=== PATIENT | male | born 2000 | race Caucasian/White ===

== ENCOUNTER 2022-11-16 18:53 | Emergency (ER) | payer BC, SELFPAY ==
[2022-11-16 19:00] VITALS: BP 132/87; PULSE 99; RESP 16; TEMP 36.6; O2SAT 99; BMI 22.9
[2022-11-16 21:40] LABS: Basophils Percent Auto 0.2 % (0.0-3.0); Eosinophils Percent Auto 0.4 % (0.0-7.0); Hematocrit 48.4 % (37.0-53.0); Immature Granulocytes Pct Auto 0.1 %; Lymphocytes Percent Auto 18.7 % (20-44); Mean Corpuscular HGB Conc 33 gm/dL (32-36); Mean Corpuscular Hemoglobin 29 pg (26-34); Mean Corpuscular Volume 88 fL (80-100); Monocytes Percent Auto 3.1 % (0.0-11.0); Neutrophils Percent Auto 77.5 % (42.0-72.0); Platelet Count* 287 K/uL (140-440); RDW Coefficient of Variation % 11.8 % (11.5-15.5); Red Blood Count 5.49 m/uL (4.30-5.90); White Blood Count* 12.02 K/uL (4.50-11.00)
[2022-11-16 22:13] LABS: Chloride* 106 mmol/L (96-114); Sodium* 141 mmol/L (135-149)
[2022-11-16 22:14] LABS: Potassium* 3.5 mmol/L (3.6-5.1)
[2022-11-16 22:16] LABS: Creatinine* 0.8 mg/dL (0.5-1.5); Est. Creatinine Clearance* 152.39; Estimated Glomerular Filt Rate 128 ml/min
[2022-11-16 22:17] LABS: Blood Urea Nitrogen* 16 mg/dL (5-24); Calcium* 9.5 mg/dL (8.4-10.6); Carbon Dioxide* 26 mmol/L (20-32); Glucose* 98 mg/dL (60-115)
[2022-11-16 22:22] LABS: Slide Review Reflex No
[2022-11-16 22:32] LABS: C Reactive Protein* < 0.5 mg/dL (0.5-1.0)
[2022-11-16 22:37] LABS: SARS PCR* Negative SARS-CoV-2 (Negative)
[2022-11-16 23:15] LABS: Erythrocyte SedimentationRate* 3 mm/hr (2-15)
[2022-11-17 01:03] LABS: Alanine Aminotransferase* 28 U/L (4-50); Alkaline Phosphatase* 74 U/L (40-150); Aspartate Amino Transferase* 42 U/L (12-35); Bilirubin Direct* 0.2 mg/dL (0.0-0.5); Bilirubin Total* 1.3 mg/dL (0.1-1.5); Total Protein* 8.7 g/dL (6.0-8.3)
[2022-11-17 01:13] LABS: NT Pro B Type NatriureticPept* < 20 pg/mL
--- NOTE | 2022-11-17 09:40 | ED.GENADULT ---
HPI - General Adult General Chief complaint: Headache/Migraine Stated complaint: Pressure in Head,Not functioning as normally would Time Seen by Provider: 11/16/22 20:25 History of Present Illness HPI narrative: 22-year-old young man here with his partner partners daughter. There also currently anticipating with child in 3 weeks. His complaint is number of symptoms. He is worried that he might have a mental illness or comes out later that perhaps some bowel disorder like his mother who has Crohn's. He does not describe any blood in stool or frankly abdominal pain but for the last month or maybe longer has been having difficult time eating in particular. He sometimes has to force feed himself. Generally vague sense of nausea. He will push himself to eat and end up retching. Does not sound as the vomiting is a major component though. He has lately been having small formed stools. He does get intermittent headaches as well usually worse over the course of the day and is not waking with them. He has not had any fevers. No rashes noted. He describes a believe for episodes of what he would call panic attacks. He notes heart racing and breathing fast. First 1 occurred maybe 2 months ago and had again 4 over the last 2 months. Otherwise describes a frequent sense of needing to pay attention to his breathing perhaps what I would describe as a psychogenic air hunger. Generally lower energy. He does get 6 hours of sleep at night typically. 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 No substance use, no alcohol. 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 Transaminases were reported to have normalized. He is able to show me labs including normal chemistries. Related Data Allergies Allergy/AdvReac Type Severity Reaction Status Date / Time No Known Drug Allergies Allergy Verified 11/16/22 19:05 Review of Systems Status of ROS: Reports: 10 or more systems reviewed and unremarkable except as noted in History and below [facility] Social History Non-prescribed substance use: denies use Exam Narrative: Exam Narrative: Pleasant. Introspective/thoughtful. Speech isn't pressured or slurred. Appropriately casually groomed. Is wearing a hoodie; initially the hoodie up. Cranial nerves 2-12 look to be intact. Head is atraumatic. There is no thyromegaly. Neck is supple. Lungs are clear. Breathing easily. There is no supraclavicular crepitus. Heart is with a mildly elevated rate in a regular rhythm. No murmur rub or gallop identified. Skin is warm and dry without apparent rash. Extremities are well perfused without edema. Oropharynx is a little sticky. Abdomen is flat soft and nontender. No masses appreciated. There is no flank pain. Const: Vital Signs, click to edit/add: Vital Signs - 24 hr 11/16/22 19:00 Temperature 97.9 F Pulse Rate [Pulse Oximeter] 99 Respiratory Rate 16 [facility] 132/87 Pulse Oximetry 99 Oxygen Delivery Me thod Room Air Documenting provider has reviewed patient's vital signs: yes Course Vital Signs Vital signs: Initial Vital Signs Temperature 97.9 F 11/16/22 19:00 Temperature Source Temporal Artery Scan 11/16/22 19:00 Pulse Rate 99 11/16/22 19:00 Pulse Rhythm 11/16/22 19:00 Pulse Strength 3+ Normal 11/16/22 19:00 Respiratory Rate 16 11/16/22 19:00 Blood Pressure 132/87 11/16/22 19:00 Blood Pressure Mean 102 11/16/22 19:00 Blood Pressure Position Sitting 11/16/22 19:00 Pulse Oximetry 99 11/16/22 19:00 Oxygen Delivery Method 11/16/22 19:00 Vital Signs Temperature 97.9 F 11/16/22 19:00 Pulse Rate 99 11/16/22 19:00 Respiratory Rate 16 11/16/22 19:00 Blood Pressure 132/87 11/16/22 19:00 Pulse Oximetry 99 11/16/22 19:00 Oxygen Delivery Method 11/16/22 19:00 Temperature 97.9 F 11/16/22 19:00 Pulse Rate 99 11/16/22 19:00 Respiratory Rate 16 11/16/22 19:00 Blood Pressure 132/87 11/16/22 19:00 Pulse Oximetry 99 11/16/22 19:00 Oxygen Delivery Method 11/16/22 19:00 Medical Decision Making MDM Narrative Medical decision making narrative: I can certainly identify some social stressors. I discussed that this could be done as an outpatient workup and regardless will need follow-up in the outpatient. He would like to proceed with at least initial laboratory evaluation. I did review labs that were done near the end of last year which is noted above showed normal chemistries. I suppose some of this fatigue could be coming from EBV infection and just be lingering. Would be reasonable to check for COVID. I suspect the labs will be generally normal. He would like to recheck. I would also check a TSH. And no red flags really with the headaches at this point. He describes a general awareness of his health and care in that regard. I think anticipating in 3 weeks of of a child could be adding to some degree of stress. Probably mental health is contributing to a good deal of these symptoms as described. Probably anxiety and possibly some depressive symptomatology. Initial laboratory evaluation is ordered. COVID testing as well. Jax departed the ER pending these results for outpatient follow-up. Lab Data Lab results reviewed: Yes I reviewed the patient's lab results Labs: Lab Results 11/16/22 11/16/22 11/16/22 Range/Units 21:30 21:33 21:33 WBC 12.02 H (4.50-11.00) K/uL RBC 5.49 (4.30-5.90) m/uL Hgb 16.0 (13.5-17.5) gm/dL Hct 48.4 (37.0-53.0) % MCV 88 (80-100) fL MCH 29 (26-34) pg MCHC 33 (32-36) gm/dL RDW Coeff of Reynaldo 11.8 (11.5-15.5) % Plt Count 287 (140-440) K/uL Neut % (Auto) 77.5 H (42.0-72.0) % Lymph % (Auto) 18.7 L (20-44) % [place] % (Auto) 3.1 (0.0-11.0) % Eos % (Auto) 0.4 (0.0-7.0) % Baso % (Auto) 0.2 (0.0-3.0) % Neut # (Auto) 9.30 H (1.7-7.0) K/uL Lymph # (Auto) 2.20 (0.90-2.90) K/uL [place] # (Auto) 0.40 (0.00-0.90) K/UL Eos # (Auto) 0.00 (0.00-0.50) K/uL Baso # (Auto) 0.00 (0.00-0.30) K/uL ESR (2-15) mm/hr Sodium 141 (135-149) mmol/L Potassium 3.5 L (3.6-5.1) mmol/L Chloride 106 (96-114) mmol/L Carbon Dioxide 26 (20-32) mmol/L BUN 16 (5-24) mg/dL Creatinine 0.8 (0.5-1.5) mg/dL Estimated Creat Clear 152.39 Estimated GFR 128 ml/min Glucose 98 (60-115) mg/dL Calcium 9.5 (8.4-10.6) mg/dL Total Bilirubin (0.1-1.5) mg/dL Direct Bilirubin (0.0-0.5) mg/dL AST (12-35) U/L ALT (4-50) U/L Alkaline Phosphatase (40-150) U/L C-Reactive Protein < 0.5 L (0.5-1.0) mg/dL NT-Pro-B Natriuret Pep pg/mL Total Protein (6.0-8.3) g/dL Albumin (3.3-5.0) g/dL SARS-CoV-2 (PCR) Negative SARS-CoV-2 (Negative) 11/16/22 11/16/22 Range/Units 21:33 21:33 WBC (4.50-11.00) K/uL RBC (4.30-5.90) m/uL Hgb (13.5-17.5) gm/dL Hct (37.0-53.0) % MCV (80-100) fL MCH (26-34) pg MCHC (32-36) gm/dL RDW Coeff of Reynaldo (11.5-15.5) % Plt Count (140-440) K/uL Neut % (Auto) (42.0-72.0) % Lymph % (Auto) (20-44) % [place] % (Auto) (0.0-11.0) % Eos % (Auto) (0.0-7.0) % Baso % (Auto) (0.0-3.0) % Neut # (Auto) (1.7-7.0) K/uL Lymph # (Auto) (0.90-2.90) K/uL [place] # (Auto) (0.00-0.90) K/UL Eos # (Auto) (0.00-0.50) K/uL Baso # (Auto) (0.00-0.30) K/uL ESR 3 (2-15) mm/hr Sodium (135-149) mmol/L Potassium (3.6-5.1) mmol/L Chloride (96-114) mmol/L Carbon Dioxide (20-32) mmol/L BUN (5-24) mg/dL Creatinine (0.5-1.5) mg/dL Estimated Creat Clear Estimated GFR ml/min Glucose (60-115) mg/dL Calcium (8.4-10.6) mg/dL Total Bilirubin 1.3 (0.1-1.5) mg/dL Direct Bilirubin 0.2 (0.0-0.5) mg/dL AST 42 H (12-35) U/L ALT 28 (4-50) U/L Alkaline Phosphatase 74 (40-150) U/L C-Reactive Protein (0.5-1.0) mg/dL NT-Pro-B Natriuret Pep < 20 pg/mL Total Protein 8.7 H (6.0-8.3) g/dL Albumin 5.0 (3.3-5.0) g/dL SARS-CoV-2 (PCR) (Negative) Discharge Plan Discharge Clinical Impression: Malaise Patient Disposition: Home, Self-Care Instructions: Fatigue (ED) Additional Instructions: As I said I am impressed at insightful thoughtful you seem to be; this bodes well but can predispose to perseveration as well. It definitely sounds as though you are struggling with some degree of anxiety As discussed, do try to stay well-hydrated drinking at least 2-3 L of water daily. You may need to also increase your fiber intake in the short term. Perhaps this can just be 1-2 doses of MiraLax equivalent in a smoothie in the morning. Try to eat in the evenings so you do not have an empty stomach as long. Try to get regular and quality sleep. Try to get a little heart pumping exercise daily; this helps with both mood/distraction/energy and digestion/guts. I would schedule a follow-up with Dr. Peng to go over these symptoms. Will send a note to Dr. Peng as well. I will call you if any of these lab results are abnormal. Can try this Zofran from [employer]. Stand Alone Forms: [employer] Info Instructions
== END 2022-11-16 22:35 | disposition home or self-care (01) ==
PROVIDERS: Emergency Provider Family Medicine; PCP Family Medicine
DX: R53.81 Other malaise (principal)
CPT/HCPCS: 36415; 80048; 80076; 83880; 84443; 85025; 85651; 86140; 87635; 99283; 99284

== ENCOUNTER 2023-11-22 09:02 | Emergency (ER) | payer BC, SELFPAY ==
[2023-11-22 09:09] VITALS: BP 126/85; PULSE 76; RESP 14; TEMP 36.9; O2SAT 96; BMI 24.8
[2023-11-22 09:21] VITALS: BP 126/85; PULSE 69
[2023-11-22 09:24] VITALS: BP 116/78; BP 120/79; PULSE 103; PULSE 86
--- NOTE | 2023-11-22 09:26 | ED.GENADULT ---
HPI - General Adult General Chief complaint: Nausea/Vomiting Stated complaint: vomiting blood Time Seen by Provider: 11/22/23 09:09 History of Present Illness HPI narrative: pt states he began feeing weak yesterday, little energy and nauseated. Has vomited X4, states there was a lot of blood, bright red. Pt states he has abdominal discomfort, but not pain. Normal stool today. Denies fever or chills . Has history of high bilirubin. Pt states has had no recent illness, drank some tequila on Wednesday just a little bit. 23-year-old young man presenting to the emergency department with concern of vomiting, multiple episodes and then noting blood in the vomitus. Denies any clots. His stomach hurts but it is not so much ?pain?. No diarrhea. Significant other who accompanies here today notes a history of high bilirubin and so does think it would be a good idea to check labs. Two days ago did have some Tequila; sounds like that was though around 36+ hours ago. Does not sound as though alcohol ingestion is a problem typically. Jax does feel that some IV hydration would help. Not identifying any particular ill exposures. Feels pretty tired/worn out. I last saw Mr. Arreola about a year ago in this department with fatigue and some emotional stressors. Related Data Home Medications Medication Instructions Recorded Confirmed No Known Home Medications 11/22/23 11/22/23 Allergies Allergy/AdvReac Type Severity Reaction Status Date / Time No Known Drug Allergies Allergy Verified 11/16/22 19:05 Review of Systems Status of ROS: Reports: 6 or more systems reviewed and unremarkable except as noted in History and below PFSH PFS Social History Smoking Status: Never smoker Do you use any of these nicotine containing products: None Second hand tobacco smoke exposure: No How often do you have a drink containing alcohol: 2-4 times a month How many standard drinks containing alcohol do you have on a typical day: 3 or 4 AUDIT-C Alcohol total score: 3 Non-prescribed substance use: denies use service: No Exam Narrative: Exam Narrative: Pleasant. Introspective. NAD. Mouth sounds little sticky. Oropharynx without evidence of blood. He seems tired. Breathing easily. Lungs are clear. Heart in regular rate and rhythm. Been is soft with normoactive bowel sounds. No peritoneal signs. Diffusely mildly tender. Extremities are well perfused. Without edema. Skin warm and dry. No apparent rash. Orthostatics were done and were symptomatic as well as positive in pulse increase. Const: Vital Signs, click to edit/add: Vital Signs - 24 hr 11/22/23 09:09 11/22/23 09:21 11/22/23 09:24 Temperature 98.5 F Pulse Rate [Pulse Oximeter] 76 Pulse Rate [orthos tatic lying] 69 Pulse Rate [orthos tatic sitting] 86 Pulse Rate [orthos tatic standing] 103 H Respiratory Rate 14 Blood Pressure [Ri ght Upper Arm] 126/85 Blood Pressure [or thostatic lying] 126/85 Blood Pressure [or thostatic sitting] 120/79 Blood Pressure [or thostatic standing ] 116/78 Pulse Oximetry 96 Oxygen Delivery Me thod Room Air Documenting provider has reviewed patient's vital signs: yes Course Vital Signs Vital signs: Initial Vital Signs Temperature 98.5 F 11/22/23 09:09 Temperature Source Temporal Artery Scan 11/22/23 09:09 Pulse Rate 76 11/22/23 09:09 Pulse Rhythm Regular 11/22/23 09:09 Respiratory Rate 14 11/22/23 09:09 Blood Pressure 126/85 11/22/23 09:09 Blood Pressure Mean 98 11/22/23 09:09 Blood Pressure Position Supine 11/22/23 09:09 Pulse Oximetry 96 11/22/23 09:09 Oxygen Delivery Method Room Air 11/22/23 09:09 Vital Signs Temperature 98.5 F 11/22/23 09:09 Pulse Rate 76 11/22/23 09:09 Respiratory Rate 14 11/22/23 09:09 Blood Pressure 126/85 11/22/23 09:09 Pulse Oximetry 96 11/22/23 09:09 Oxygen Delivery Method Room Air 11/22/23 09:09 Temperature 98.0 F 11/22/23 12:08 Pulse Rate 60 11/22/23 12:08 Respiratory Rate 14 11/22/23 12:08 Blood Pressure 116/71 11/22/23 12:08 Pulse Oximetry 98 11/22/23 10:59 Oxygen Delivery Method Room Air 11/22/23 10:59 Medications Administered Medications: Discontinued Medications Generic Name Dose Route Start Last Admin Trade Name Freq PRN Reason Stop Dose Admin Sodium Chloride 1,000 mls @ 1,000 mls/hr 11/22/23 09:28 11/22/23 09:41 0.9 % Sodium Chloride 1000 Ml IV 11/22/23 10:27 1,000 mls/hr .Q1H RONALD Administration Medical Decision Making MDM Narrative Medical decision making narrative: This seems to be a infectious gastritis of some form. Can certainly check hemoglobin though does not sound as though there was significant blood loss. Maybe Mariaelena-Belle? Does not sound as though esophageal varices would be likely. Pain is not localizing to the right upper quadrant. I do not think that the gallbladder/liver likely exclusively involved here but can check labs particularly with concern of elevated liver/bilirubin labs in the past. Seems to be an infectious process and considering community prevalence would screen for influenza. I think would benefit from some IV hydration. Maybe antiemetic. Address abnormal labs. IV hydration given. Labs reviewed. Reassuring. Normal bilirubin Influenza and COVID also negative. On reassessment overall improved. Tolerating than oral intake. No further vomiting/hematemesis. See patient discharge plan Medical Records Medical records reviewed: Yes I reviewed the patient's medical records Lab Data Lab results reviewed: Yes I reviewed the patient's lab results Labs: Lab Results 11/22/23 Range/Units 09:40 WBC 7.06 (4.50-11.00) K/uL RBC 5.37 (4.30-5.90) m/uL Hgb 15.5 (13.5-17.5) gm/dL Hct 47.0 (37.0-53.0) % MCV 88 (80-100) fL MCH 29 (26-34) pg MCHC 33 (32-36) gm/dL RDW Coeff of Reynaldo 11.8 (11.5-15.5) % Plt Count 231 (140-440) K/uL Neut % (Auto) 84.5 H (42.0-72.0) % Lymph % (Auto) 9.6 L (20-44) % [place] % (Auto) 5.5 (0.0-11.0) % Eos % (Auto) 0.3 (0.0-7.0) % Baso % (Auto) 0.1 (0.0-3.0) % Neut # (Auto) 6.00 (1.7-7.0) K/uL Lymph # (Auto) 0.70 L (0.90-2.90) K/uL [place] # (Auto) 0.40 (0.00-0.90) K/UL Eos # (Auto) 0.02 (0.00-0.50) K/uL Baso # (Auto) 0.01 (0.00-0.30) K/uL Abs Immat Gran (auto) 0.00 (0.00-0.30) K/uL Imm/Tot Granulo (auto) 0.0 % Sodium 138 (135-149) mmol/L Potassium 3.6 (3.6-5.1) mmol/L Chloride 104 (96-114) mmol/L Carbon Dioxide 25 (20-32) mmol/L Anion Gap 9 (7-15) mEq/L BUN 14 (5-24) mg/dL Creatinine 0.8 (0.5-1.5) mg/dL Estimated Creat Clear 152.95 Estimated GFR 128 ml/min Glucose 108 (60-115) mg/dL Calcium 9.1 (8.4-10.6) mg/dL Total Bilirubin 1.7 H (0.1-1.5) mg/dL Direct Bilirubin 0.2 (0.0-0.5) mg/dL AST 22 (12-35) U/L ALT 19 (4-50) U/L Alkaline Phosphatase 80 (40-150) U/L C-Reactive Protein 1.0 (0.5-1.0) mg/dL Total Protein 7.9 (6.0-8.3) g/dL Albumin 4.5 (3.3-5.0) g/dL SARS-CoV-2 (PCR) Negative SARS-CoV-2 (Negative) Influenza Type A (PCR) Negative PCR FLU A (Negative) Influenza Type B (PCR) Negative PCR FLU B (Negative) Discharge Plan Discharge Clinical Impression: Hematemesis, Vomiting Patient Disposition: Home w/ Parent or Adult Condition: Improved Additional Instructions: Focus on hydration. Slow advance of diet over the next 36 hours or so. Popsicles, Jell-O, soup broths. Crackers, rice, toast. Consider taking famotidine once or twice daily over the next week or 2 to help settle your stomach. Be seen for repeated episodes of bloody emesis particularly with developing clots. And otherwise consider discussing further with your primary care physician to see whether not further investigation, direct visualization is warranted. Zofran from [facility] Prescriptions: No Action No Known Home Medications Follow Up/Referrals: Kanika Peng DO [Primary Care Provider] - Stand Alone Forms: [employer] Info Instructions
[2023-11-22] MEDS: 0.9 % SODIUM CHLORIDE 1000 ml 1,000 ML IV (09:41)
[2023-11-22 09:56] LABS: Basophils Absolute Auto 0.01 K/uL (0.00-0.30); Basophils Percent Auto 0.1 % (0.0-3.0); Eosinophils Absolute Auto 0.02 K/uL (0.00-0.50); Eosinophils Percent Auto 0.3 % (0.0-7.0); Hemoglobin* 15.5 gm/dL (13.5-17.5); Lymphocytes Percent Auto 9.6 % (20-44); Mean Corpuscular HGB Conc 33 gm/dL (32-36); Mean Corpuscular Hemoglobin 29 pg (26-34); Mean Corpuscular Volume 88 fL (80-100); Monocytes Percent Auto 5.5 % (0.0-11.0); Neutrophils Percent Auto 84.5 % (42.0-72.0); Platelet Count* 231 K/uL (140-440); RDW Coefficient of Variation % 11.8 % (11.5-15.5); Red Blood Count 5.37 m/uL (4.30-5.90); White Blood Count* 7.06 K/uL (4.50-11.00)
[2023-11-22 09:59] LABS: Slide Review Reflex No
[2023-11-22 10:08] LABS: Chloride* 104 mmol/L (96-114)
[2023-11-22 10:09] LABS: Albumin* 4.5 g/dL (3.3-5.0); Potassium* 3.6 mmol/L (3.6-5.1); Sodium* 138 mmol/L (135-149)
[2023-11-22 10:11] LABS: Creatinine* 0.8 mg/dL (0.5-1.5); Est. Creatinine Clearance* 152.95; Estimated Glomerular Filt Rate 128 ml/min
[2023-11-22 10:12] LABS: Alanine Aminotransferase* 19 U/L (4-50); Alkaline Phosphatase* 80 U/L (40-150); Anion Gap 9 mEq/L (7-15); Aspartate Amino Transferase* 22 U/L (12-35); Bilirubin Direct* 0.2 mg/dL (0.0-0.5); Bilirubin Total* 1.7 mg/dL (0.1-1.5); Blood Urea Nitrogen* 14 mg/dL (5-24); Carbon Dioxide* 25 mmol/L (20-32); Glucose* 108 mg/dL (60-115); Total Protein* 7.9 g/dL (6.0-8.3)
[2023-11-22 10:13] LABS: Calcium* 9.1 mg/dL (8.4-10.6)
[2023-11-22 10:39] LABS: PCR FLU A Negative PCR FLU A (Negative); PCR FLU B Negative PCR FLU B (Negative); SARS PCR* Negative SARS-CoV-2 (Negative)
[2023-11-22 10:59] VITALS: BP 117/61; PULSE 55; RESP 14; TEMP 36.9; O2SAT 98
--- NOTE | 2023-11-22 11:00 | PC.NURSE ---
pt states he has not had any further emesis, denies nausea currently. just really tired.
[2023-11-22 12:08] VITALS: BP 116/71; PULSE 60; RESP 14; TEMP 36.7
== END 2023-11-22 12:09 | disposition home or self-care (01) ==
PROVIDERS: Emergency Provider Family Medicine; PCP Family Medicine
DX: K92.0 Hematemesis (principal)
CPT/HCPCS: 36415; 80048; 80076; 85025; 86140; 87631; 99283; 99284; J7030